=== PATIENT | female | born 1950 | race Caucasian/White ===

== ENCOUNTER 2016-04-22 18:01 | Inpatient (IN) | payer MEDICAID ==
[~2016-04-22] VITALS: Ht 154.9 cm; Wt 55.0 kg
[2016-04-22] MEDS ORDERED: SODIUM CHLORIDE 0.9% 500 ML IV ONE (18:15)
[2016-04-22] MEDS ORDERED: ATROPINE SULFATE 0.1 MG/ML 10 ML SYRINGE IVP ONE (18:15)
[2016-04-22] MEDS ORDERED: ONDANSETRON HCL 4 MG/2 ML VIAL IVP ONE (18:15)
[2016-04-22] MEDS ORDERED: CALCIUM GLUCONATE 100 MG/ML 10 ML IVP ONE (18:15)
[2016-04-22 18:16] LABS: BASOPHILS % (AUTO) 0.8 % (0.0-2.0); EOSINOPHILS % (AUTO) 4.1 % (1.0-6.0); HEMATOCRIT 24.8 % (36-46); LYMPHOCYTES # (AUTO) 2.3 K/uL (1.0-4.8); LYMPHOCYTES % (AUTO) 28.3 % (22.0-44.0); MEAN CORPUSCULAR HEMOGLOBIN 28.6 pg (26.0-34.0); MEAN CORPUSCULAR HGB CONC 32.2 G/dL (31.0-37.0); MEAN CORPUSCULAR VOLUME 89 fL (80-100); MONOCYTES # (AUTO) 0.7 K/uL (0.1-1.0); MONOCYTES % (AUTO) 8.5 % (2.0-9.0); NEUTROPHILS # (AUTO) 4.8 K/uL (1.8-7.7); NEUTROPHILS % (AUTO) 58.3 % (40.0-70.0); PLATELET COUNT (AUTO) 150 K/uL (150-450); RED BLOOD CELL COUNT(AUTO) 2.79 MIL/uL (4.00-5.20); RED CELL DISTRIBUTION WIDTH 14.6 % (11.5-14.5); WHITE BLOOD COUNT (AUTO) 8.2 K/uL (4.5-11.0)
[2016-04-22] MEDS ORDERED: IOVERSOL 350 MG/ML 100 ML VIAL ONE (18:27)
[2016-04-22 18:31] LABS: ALANINE AMINOTRANSFERASE 43 U/L (12-78); ANION GAP 13 mmol/L (8-16); ASPARTATE AMINOTRANSFERASE 53 U/L (15-37); BILIRUBIN,TOTAL 0.2 mg/dL (0.1-1.0); CALCIUM, TOTAL 7.6 mg/dL (8.8-10.5); CARBON DIOXIDE 18 mmol/L (22-29); CHLORIDE 108 mmol/L (98-107); CREATINE KINASE, TOTAL 41 U/L (26-192); GLOMERULAR FILTR. RATE CALC 12 mL/min (>60); SODIUM SERUM 139 mmol/L (136-145); TOTAL PROTEIN, SERUM 6.7 g/dL (6.4-8.2); UREA NITROGEN, BLOOD 83 mg/dL (7-18)
[2016-04-22 18:37] LABS: RBC MORPHOLOGY COMMENT NORMAL RBC MORPH
[2016-04-22 18:39] LABS: INR 1.1 (0.9-1.1)
[2016-04-22 18:49] LABS: POTASSIUM 6.6 mmol/L (3.5-5.1)
[2016-04-22] MEDS ORDERED: INSULIN REGULAR, HUMAN 100 UNITS/ML IVP ONE (19:00)
[2016-04-22] MEDS ORDERED: 0.9% SODIUM CHLORIDE 10 ML SYRINGE IVP PRN (19:00)
[2016-04-22] MEDS ORDERED: ACETAMINOPHEN 325 MG TABLET PO PRN (19:00)
[2016-04-22] MEDS ORDERED: ALBUTEROL SULFATE 5 MG/ML 20 ML NEB SOLN [BULK] NEB ONE (19:00)
[2016-04-22] MEDS ORDERED: SODIUM BICARBONATE [ADULT] 8.4% 50 MEQ/50 ML SYRINGE IVP ONE (19:00)
[2016-04-22] MEDS ORDERED: DEXTROSE 50%-WATER 25 GM/50 ML SYRINGE IVP ONE (19:00)
[2016-04-22] MEDS ORDERED: ONDANSETRON HCL 4 MG/2 ML VIAL IVP PRN (19:00)
[2016-04-22] MEDS ORDERED: SODIUM POLYSTYRENE SULFONATE 15 GM/60 ML SUSPENSION BOTTLE PO ONE (19:00)
[2016-04-22] MEDS: OXYGEN THERAPY IH SCH (19:21)
[2016-04-22] MEDS ORDERED: 0.9% SODIUM CHLORIDE 5 ML NEB SOLUTION NEB ONE ×2 (19:25)
[2016-04-22 19:31] LABS: APPEARANCE,URINE CLOUDY (CLEAR); GLUCOSE, URINE (UA) NEGATIVE (NEGATIVE); KETONES,URINE NEGATIVE (NEGATIVE); LEUKOCYTE ESTERASE ,URINE LARGE (NEGATIVE); OCCULT BLOOD,URINE MODERATE (NEGATIVE); PROTEIN,URINE SEE CONFIRM (NEGATIVE)
[2016-04-22 19:43] LABS: ADD UA MICROSCOPIC YES
[2016-04-22 20:04] LABS: SULFOSALICYLIC ACID,URINE 2+ (Negative)
[2016-04-22 20:06] LABS: SQUAMOUS EPITHELIAL CELL,UR Few /LPF (None Seen); WBC,URINE >100 /HPF (0-5)
[2016-04-22 20:59] LABS: LACTIC ACID 3.5 mmol/L (0.4-2.0); REFLEX LACTIC ACID? YES YES
[2016-04-22 20:59] LABS: CALCIUM, TOTAL 8.3 mg/dL (8.8-10.5); CREATININE 3.85 mg/dL (0.60-1.30); POTASSIUM 5.5 mmol/L (3.5-5.1)
[2016-04-23 00:27] VITALS: BP 160/75
[2016-04-23] MEDS ORDERED: DEXTROSE 50%-WATER 25 GM/50 ML SYRINGE IVP PRN (01:00)
[2016-04-23 03:56] VITALS: BP 154/70
[2016-04-23] MEDS ORDERED: INFLUENZA VIRUS VACCINE QVS 2016-17 (3YR+)/PF 60 MCG/0.5 ML SYRINGE IM ONE (04:00)
[2016-04-23] MEDS ORDERED: CefTRIAXone 1 GM/DEXTROSE 50 ML IV SCH (04:30)
[2016-04-23] MEDS ORDERED: MAGNESIUM HYDROXIDE SUSPENSION 30 ML UDCUP PO PRN (04:45)
[2016-04-23] MEDS ORDERED: ACETAMINOPHEN 325 MG TABLET PO PRN (04:45)
[2016-04-23] MEDS ORDERED: 0.9% SODIUM CHLORIDE 10 ML SYRINGE IVP PRN (04:45)
[2016-04-23] MEDS ORDERED: OxyCODONE HCL/ACETAMINOPHEN 5-325 MG TABLET PO PRN ×2 (04:45)
[2016-04-23] MEDS: CIPROFLOXACIN 400 MG/D5% WATER 200 ML IV SCH ×3 (05:48→18:52)
[2016-04-23] MEDS: INSULIN ASPART 100 UNITS/ML SQ PRN ×3 (05:52→21:42)
[2016-04-23] MEDS ORDERED: SODIUM CHLORIDE 0.9% 1,000 ML IV ONE (06:17)
[2016-04-23] MEDS: ONDANSETRON HCL 4 MG/2 ML VIAL IVP PRN (06:28)
[2016-04-23] MEDS: OXYGEN THERAPY IH SCH ×2 (08:00→19:37)
[2016-04-23 09:32] VITALS: BP 153/72
[2016-04-23] MEDS: PANTOPRAZOLE SODIUM 40 MG/VIAL IVP SCH (09:36)
[2016-04-23] MEDS: DOCUSATE SODIUM 100 MG CAPSULE PO SCH ×2 (09:36→21:33)
[2016-04-23] MEDS: BUMETANIDE 0.25 MG/ML 4 ML VIAL IVP SCH (09:37)
[2016-04-23 12:34] VITALS: BP 165/76
[2016-04-23] MEDS: SODIUM BICARBONATE 75 MEQ in SODIUM CHLORIDE 0.45% 1,000 ML IV SCH (15:20)
[2016-04-23 16:45] VITALS: BP 167/78
[2016-04-23] MEDS: SOD FERRIC GLUC COMPLX/SUCROSE 125 MG in SODIUM CHLORIDE 0.9% 100 ML IV SCH (17:37)
[2016-04-23] MEDS: HydrALAZINE HCL 50 MG TABLET PO SCH ×2 (17:37→21:33)
[2016-04-23 19:18] VITALS: BP 144/67
[2016-04-24] VITALS (7 sets, daily range): BP systolic 141–161; BP diastolic 62–72
[2016-04-24] MEDS: CIPROFLOXACIN 400 MG/D5% WATER 200 ML IV SCH ×2 (05:02→18:16)
[2016-04-24] MEDS: LEVOTHYROXINE SODIUM 25 MCG TABLET PO SCH (06:03)
[2016-04-24] MEDS: SODIUM BICARBONATE 75 MEQ in SODIUM CHLORIDE 0.45% 1,000 ML IV SCH (06:04)
[2016-04-24 06:43] LABS: BASOPHILS % (AUTO) 0.8 % (0.0-2.0); EOSINOPHILS % (AUTO) 3.3 % (1.0-6.0); HEMATOCRIT 22.8 % (36-46); HEMOGLOBIN 7.4 g/dL (12.0-16.0); LYMPHOCYTES # (AUTO) 1.2 K/uL (1.0-4.8); LYMPHOCYTES % (AUTO) 16.5 % (22.0-44.0); MEAN CORPUSCULAR HEMOGLOBIN 28.9 pg (26.0-34.0); MEAN CORPUSCULAR HGB CONC 32.5 G/dL (31.0-37.0); MEAN CORPUSCULAR VOLUME 89 fL (80-100); MONOCYTES # (AUTO) 0.6 K/uL (0.1-1.0); MONOCYTES % (AUTO) 8.1 % (2.0-9.0); NEUTROPHILS # (AUTO) 5.3 K/uL (1.8-7.7); NEUTROPHILS % (AUTO) 71.3 % (40.0-70.0); PLATELET COUNT (AUTO) 137 K/uL (150-450); RED BLOOD CELL COUNT(AUTO) 2.57 MIL/uL (4.00-5.20); RED CELL DISTRIBUTION WIDTH 14.1 % (11.5-14.5); WHITE BLOOD COUNT (AUTO) 7.4 K/uL (4.5-11.0)
[2016-04-24 06:52] LABS: CALCIUM, TOTAL 8.2 mg/dL (8.8-10.5); CREATININE 3.59 mg/dL (0.60-1.30)
[2016-04-24 07:17] LABS: RBC MORPHOLOGY COMMENT NORMAL RBC MORPH
[2016-04-24] MEDS: PANTOPRAZOLE SODIUM 40 MG/VIAL IVP SCH (08:50)
[2016-04-24] MEDS: BUMETANIDE 0.25 MG/ML 4 ML VIAL IVP SCH (08:50)
[2016-04-24] MEDS: OXYGEN THERAPY IH SCH ×2 (08:50→20:00)
[2016-04-24] MEDS: HydrALAZINE HCL 50 MG TABLET PO SCH ×3 (08:51→20:26)
[2016-04-24] MEDS: DOCUSATE SODIUM 100 MG CAPSULE PO SCH ×2 (08:51→20:26)
[2016-04-24] MEDS: INSULIN ASPART 100 UNITS/ML SQ PRN ×2 (11:51→18:25)
[2016-04-24] MEDS ORDERED: EPOETIN ALFA 10,000 UNITS/ML VIAL SQ ONE (13:00)
[2016-04-24] MEDS: SOD FERRIC GLUC COMPLX/SUCROSE 125 MG in SODIUM CHLORIDE 0.9% 100 ML IV SCH (16:23)
[2016-04-24] MEDS ORDERED: SODIUM CHLORIDE 0.9% 250 ML IV ONE (16:25)
[2016-04-25] VITALS (7 sets, daily range): BP systolic 135–156; BP diastolic 59–70
[2016-04-25] MEDS: ONDANSETRON HCL 4 MG/2 ML VIAL IVP PRN ×2 (00:26→08:00)
[2016-04-25] MEDS: CIPROFLOXACIN 400 MG/D5% WATER 200 ML IV SCH ×2 (04:44→17:10)
[2016-04-25] MEDS: INSULIN ASPART 100 UNITS/ML SQ PRN ×3 (06:00→20:37)
[2016-04-25] MEDS: LEVOTHYROXINE SODIUM 25 MCG TABLET PO SCH (06:00)
[2016-04-25 06:27] LABS: EOSINOPHILS % (AUTO) 1.2 % (1.0-6.0); HEMATOCRIT 23.2 % (36-46); HEMOGLOBIN 7.5 g/dL (12.0-16.0); LYMPHOCYTES # (AUTO) 1.3 K/uL (1.0-4.8); LYMPHOCYTES % (AUTO) 17.8 % (22.0-44.0); MEAN CORPUSCULAR HEMOGLOBIN 28.7 pg (26.0-34.0); MEAN CORPUSCULAR HGB CONC 32.1 G/dL (31.0-37.0); MEAN CORPUSCULAR VOLUME 89 fL (80-100); MONOCYTES # (AUTO) 0.6 K/uL (0.1-1.0); MONOCYTES % (AUTO) 8.6 % (2.0-9.0); NEUTROPHILS # (AUTO) 5.2 K/uL (1.8-7.7); NEUTROPHILS % (AUTO) 71.4 % (40.0-70.0); PLATELET COUNT (AUTO) 149 K/uL (150-450); RED CELL DISTRIBUTION WIDTH 13.9 % (11.5-14.5); WHITE BLOOD COUNT (AUTO) 7.3 K/uL (4.5-11.0)
[2016-04-25 07:02] LABS: CALCIUM, TOTAL 8.3 mg/dL (8.8-10.5); CREATININE 3.78 mg/dL (0.60-1.30); PHOSPHORUS 5.1 mg/dL (2.5-4.9); POTASSIUM 3.6 mmol/L (3.5-5.1)
[2016-04-25 07:47] LABS: RBC MORPHOLOGY COMMENT NORMAL RBC MORPH
[2016-04-25] MEDS: PANTOPRAZOLE SODIUM 40 MG/VIAL IVP SCH (07:57)
[2016-04-25] MEDS: OXYGEN THERAPY IH SCH ×2 (07:58→20:39)
[2016-04-25] MEDS: BUMETANIDE 0.25 MG/ML 4 ML VIAL IVP SCH (07:58)
[2016-04-25] MEDS: HydrALAZINE HCL 50 MG TABLET PO SCH ×3 (09:33→20:35)
[2016-04-25] MEDS: DOCUSATE SODIUM 100 MG CAPSULE PO SCH ×2 (09:33→20:35)
[2016-04-25 14:33] LABS: GLUCOSE COMMENT 1 Received Meds; GLUCOSE,POINT OF CARE 163 MG/DL (70-110)
[2016-04-25 15:32] LABS: GLUCOSE COMMENT 1 Received Meds; GLUCOSE,POINT OF CARE 187 MG/DL (70-110)
[2016-04-25] MEDS: SOD FERRIC GLUC COMPLX/SUCROSE 125 MG in SODIUM CHLORIDE 0.9% 100 ML IV SCH (15:42)
[2016-04-26 04:02] LABS: GLUCOSE,POINT OF CARE 136 MG/DL (70-110)
[2016-04-26 04:25] VITALS: BP 141/70
[2016-04-26 04:46] VITALS: BP 113/70
[2016-04-26] MEDS: LEVOTHYROXINE SODIUM 25 MCG TABLET PO SCH (06:15)
[2016-04-26] MEDS: CIPROFLOXACIN 400 MG/D5% WATER 200 ML IV SCH ×2 (06:15→17:00)
[2016-04-26 06:31] LABS: GLUCOSE,POINT OF CARE 136 MG/DL (70-110)
[2016-04-26 06:42] LABS: BASOPHILS % (AUTO) 0.7 % (0.0-2.0); EOSINOPHILS % (AUTO) 2.1 % (1.0-6.0); HEMATOCRIT 23.8 % (36-46); HEMOGLOBIN 7.6 g/dL (12.0-16.0); LYMPHOCYTES # (AUTO) 1.3 K/uL (1.0-4.8); LYMPHOCYTES % (AUTO) 14.1 % (22.0-44.0); MEAN CORPUSCULAR HEMOGLOBIN 28.7 pg (26.0-34.0); MEAN CORPUSCULAR HGB CONC 32.1 G/dL (31.0-37.0); MEAN CORPUSCULAR VOLUME 89 fL (80-100); MONOCYTES # (AUTO) 1.1 K/uL (0.1-1.0); MONOCYTES % (AUTO) 12.7 % (2.0-9.0); NEUTROPHILS # (AUTO) 6.3 K/uL (1.8-7.7); NEUTROPHILS % (AUTO) 70.4 % (40.0-70.0); PLATELET COUNT (AUTO) 158 K/uL (150-450); RED BLOOD CELL COUNT(AUTO) 2.67 MIL/uL (4.00-5.20); RED CELL DISTRIBUTION WIDTH 14.2 % (11.5-14.5)
[2016-04-26 07:08] LABS: CALCIUM, TOTAL 8.3 mg/dL (8.8-10.5); CREATININE 4.03 mg/dL (0.60-1.30); POTASSIUM 3.2 mmol/L (3.5-5.1)
[2016-04-26 07:11] LABS: RBC MORPHOLOGY COMMENT NORMAL RBC MORPH
[2016-04-26 07:28] VITALS: BP 148/65
[2016-04-26] MEDS: PANTOPRAZOLE SODIUM 40 MG/VIAL IVP SCH (07:51)
[2016-04-26] MEDS: HydrALAZINE HCL 50 MG TABLET PO SCH ×3 (07:52→20:47)
[2016-04-26] MEDS: DOCUSATE SODIUM 100 MG CAPSULE PO SCH ×2 (07:52→20:47)
[2016-04-26] MEDS: BUMETANIDE 0.25 MG/ML 4 ML VIAL IVP SCH (07:55)
[2016-04-26] MEDS: OXYGEN THERAPY IH SCH ×2 (07:55→20:50)
[2016-04-26] MEDS ORDERED: POTASSIUM CHLORIDE 20 MEQ ER TABLET PO ONE (08:00)
[2016-04-26] MEDS: ONDANSETRON HCL 4 MG/2 ML VIAL IVP PRN (08:11)
[2016-04-26 10:44] VITALS: BP 145/66
[2016-04-26] MEDS: INSULIN ASPART 100 UNITS/ML SQ PRN ×2 (11:42→20:49)
[2016-04-26 13:56] VITALS: BP 157/74
[2016-04-26] MEDS: SOD FERRIC GLUC COMPLX/SUCROSE 125 MG in SODIUM CHLORIDE 0.9% 100 ML IV SCH (16:00)
[2016-04-26 19:29] VITALS: BP 149/68
[2016-04-27] VITALS (7 sets, daily range): BP systolic 140–157; BP diastolic 63–88
[2016-04-27] MEDS: LEVOTHYROXINE SODIUM 25 MCG TABLET PO SCH (05:39)
[2016-04-27] MEDS: CIPROFLOXACIN 400 MG/D5% WATER 200 ML IV SCH (05:39)
[2016-04-27 06:22] LABS: GLUCOSE,POINT OF CARE 128 MG/DL (70-110)
[2016-04-27 06:22] LABS: GLUCOSE,POINT OF CARE 220 MG/DL (70-110)
[2016-04-27 06:22] LABS: GLUCOSE,POINT OF CARE 124 MG/DL (70-110)
[2016-04-27 07:41] LABS: CALCIUM, TOTAL 8.1 mg/dL (8.8-10.5); CREATININE 4.31 mg/dL (0.60-1.30); POTASSIUM 3.7 mmol/L (3.5-5.1)
[2016-04-27] MEDS: OXYGEN THERAPY IH SCH ×2 (08:00→20:41)
[2016-04-27] MEDS: HydrALAZINE HCL 50 MG TABLET PO SCH ×3 (08:16→20:40)
[2016-04-27] MEDS: PANTOPRAZOLE SODIUM 40 MG/VIAL IVP SCH (08:17)
[2016-04-27] MEDS: DOCUSATE SODIUM 100 MG CAPSULE PO SCH ×2 (08:17→20:40)
[2016-04-27] MEDS ORDERED: SODIUM CHLORIDE 0.9% 250 ML IV ONE (11:26)
[2016-04-27] MEDS: INSULIN ASPART 100 UNITS/ML SQ PRN ×3 (12:09→20:45)
[2016-04-27] MEDS: SOD FERRIC GLUC COMPLX/SUCROSE 125 MG in SODIUM CHLORIDE 0.9% 100 ML IV SCH (15:31)
[2016-04-28] MEDS: LEVOTHYROXINE SODIUM 25 MCG TABLET PO SCH (05:49)
[2016-04-28 05:55] VITALS: BP 162/71
[2016-04-28 07:25] VITALS: BP 176/81
[2016-04-28 08:23] LABS: HEMATOCRIT 23.6 % (36-46); HEMOGLOBIN 7.6 g/dL (12.0-16.0); MEAN CORPUSCULAR HEMOGLOBIN 28.8 pg (26.0-34.0); MEAN CORPUSCULAR HGB CONC 32.1 G/dL (31.0-37.0); MEAN CORPUSCULAR VOLUME 90 fL (80-100); PLATELET COUNT (AUTO) 167 K/uL (150-450); RED BLOOD CELL COUNT(AUTO) 2.63 MIL/uL (4.00-5.20); RED CELL DISTRIBUTION WIDTH 14.1 % (11.5-14.5); WHITE BLOOD COUNT (AUTO) 9.1 K/uL (4.5-11.0)
[2016-04-28 08:27] LABS: CALCIUM, TOTAL 7.6 mg/dL (8.8-10.5); CREATININE 3.94 mg/dL (0.60-1.30); POTASSIUM 3.9 mmol/L (3.5-5.1)
[2016-04-28] MEDS: DOCUSATE SODIUM 100 MG CAPSULE PO SCH ×2 (08:54→20:50)
[2016-04-28] MEDS: HydrALAZINE HCL 50 MG TABLET PO SCH ×3 (08:54→20:50)
[2016-04-28] MEDS: OXYGEN THERAPY IH SCH ×2 (08:54→20:00)
[2016-04-28] MEDS: PANTOPRAZOLE SODIUM 40 MG/VIAL IVP SCH (08:55)
[2016-04-28 09:35] LABS: LYMPHOCYTES % (MANUAL) 14 % (22-44); TOTAL CELLS COUNTED 100
[2016-04-28 12:01] VITALS: BP 162/74
[2016-04-28] MEDS: INSULIN ASPART 100 UNITS/ML SQ PRN ×2 (13:06→18:24)
[2016-04-28 14:58] VITALS: BP 158/73
[2016-04-28] MEDS: SOD FERRIC GLUC COMPLX/SUCROSE 125 MG in SODIUM CHLORIDE 0.9% 100 ML IV SCH (15:52)
[2016-04-28 19:14] LABS: ALPHA-1 URINE (ELP24) 4.4 %; ALPHA-2 URINE(ELP24) 8.1 %; BETA URINE(ELP24) 10.6 %; GAMMA URINE(ELP24) 18.9 %; TOTAL PROTEIN URINE 63.1 mg/dL (Not Estab.)
[2016-04-28 19:17] VITALS: BP 152/68
[2016-04-28 20:03] LABS: GLUCOSE,POINT OF CARE 148 MG/DL (70-110)
[2016-04-28 23:01] LABS: GLUCOSE,POINT OF CARE 166 MG/DL (70-110)
[2016-04-28 23:24] VITALS: BP 149/68
[2016-04-29 04:17] VITALS: BP 164/76
[2016-04-29] MEDS: LEVOTHYROXINE SODIUM 25 MCG TABLET PO SCH (05:52)
[2016-04-29 07:39] VITALS: BP 168/78
[2016-04-29] MEDS: PANTOPRAZOLE SODIUM 40 MG/VIAL IVP SCH (09:25)
[2016-04-29] MEDS: OXYGEN THERAPY IH SCH (09:25)
[2016-04-29] MEDS: DOCUSATE SODIUM 100 MG CAPSULE PO SCH (09:25)
[2016-04-29] MEDS: HydrALAZINE HCL 50 MG TABLET PO SCH ×2 (09:25→16:54)
[2016-04-29 11:22] VITALS: BP 160/74
[2016-04-29 12:06] LABS: BASOPHILS # (AUTO) 0.04 K/uL (0.00-0.20); BASOPHILS % (AUTO) 0.5 % (0.0-2.0); EOSINOPHILS # (AUTO) 0.24 K/uL (0.00-0.70); EOSINOPHILS % (AUTO) 2.67 % (1.0-6.0); HEMATOCRIT 23.7 % (36-46); LYMPHOCYTES # (AUTO) 1.2 K/uL (1.0-4.8); MEAN CORPUSCULAR HEMOGLOBIN 29.5 pg (26.0-34.0); MEAN CORPUSCULAR HGB CONC 33.6 G/dL (31.0-37.0); MEAN CORPUSCULAR VOLUME 88 fL (80-100); MONOCYTES # (AUTO) 0.8 K/uL (0.1-1.0); MONOCYTES % (AUTO) 9.2 % (2.0-9.0); NEUTROPHILS # (AUTO) 6.7 K/uL (1.8-7.7); NEUTROPHILS % (AUTO) 74.8 % (40.0-70.0); PLATELET COUNT (AUTO) 202 K/uL (150-450); RED CELL DISTRIBUTION WIDTH 14.5 % (11.5-14.5)
[2016-04-29 12:11] LABS: CALCIUM, TOTAL 7.5 mg/dL (8.8-10.5); CREATININE 3.9 mg/dL (0.60-1.30); POTASSIUM 3.7 mmol/L (3.5-5.1)
[2016-04-29] MEDS: INSULIN ASPART 100 UNITS/ML SQ PRN (12:36)
[2016-04-29] MEDS ORDERED: DSS100 PO (14:11)
[2016-04-29] MEDS ORDERED: LEVO25TA9 PO (14:15)
[2016-04-29] MEDS ORDERED: ASPI-1093 PO (14:16)
[2016-04-29] MEDS ORDERED: FOLI0.8T2 PO (14:16)
[2016-04-29 14:49] VITALS: BP 167/88
[2016-04-29] MEDS: SOD FERRIC GLUC COMPLX/SUCROSE 125 MG in SODIUM CHLORIDE 0.9% 100 ML IV SCH (16:00)
[2016-04-29 19:21] LABS: GLUCOSE,POINT OF CARE 126 MG/DL (70-110)
[2016-04-29 19:27] LABS: GLUCOSE,POINT OF CARE 209 MG/DL (70-110)
[2016-05-02 06:21] LABS: ALBUMIN (IFE & ELECTROPHOR) 3.2 g/dL (2.9-4.4); ALBUMIN/GLOBULIN RATIO (IFE) 1.2 (0.7-1.7); ALPHA-2 (IFE & PEP) 0.7 g/dL (0.4-1.0); IGG (IMMUNOFIXATION) 995 mg/dL (700-1600); M-SPIKE (IEP) Not Observed g/dL (Not Observed); TOTAL PROTEIN 5.9 g/dL (6.0-8.5)
[2016-05-02 14:07] LABS: GLUCOSE COMMENT 1 Received Meds; GLUCOSE,POINT OF CARE 165 MG/DL (70-110)
[2016-05-02 14:12] LABS: GLUCOSE COMMENT 1 Received Meds; GLUCOSE,POINT OF CARE 177 MG/DL (70-110)
[2016-05-02 14:12] LABS: GLUCOSE,POINT OF CARE 117 MG/DL (70-110)
[2016-05-02 14:12] LABS: GLUCOSE COMMENT 1 Received Meds; GLUCOSE,POINT OF CARE 144 MG/DL (70-110)
[2016-05-02 14:12] LABS: GLUCOSE COMMENT 1 Received Meds; GLUCOSE,POINT OF CARE 180 MG/DL (70-110)
[2016-05-02 14:12] LABS: GLUCOSE COMMENT 1 Received Meds; GLUCOSE,POINT OF CARE 168 MG/DL (70-110)
[2016-05-02 14:52] LABS: GLUCOSE,POINT OF CARE 175 MG/DL (70-110)
== END 2016-04-29 17:00 | disposition home or self-care (01) | DRG 775 ==
LOC: EMS 18:03 → 5N 23:30
PROVIDERS: ADMIT Internal Medicine; ATTEND Internal Medicine
DX: F10.129 Alcohol abuse with intoxication, unspecified (principal); E43 Unspecified severe protein-calorie malnutrition; K56.60 Unspecified intestinal obstruction; N17.9 Acute kidney failure, unspecified; E87.2 Acidosis; N18.4 Chronic kidney disease, stage 4 (severe); E11.22 Type 2 diabetes mellitus with diabetic chronic kidney disease; N39.0 Urinary tract infection, site not specified; D63.1 Anemia in chronic kidney disease; E03.9 Hypothyroidism, unspecified; E11.319 Type 2 diabetes mellitus with unspecified diabetic retinopathy without macular edema; E11.65 Type 2 diabetes mellitus with hyperglycemia; E78.00 Pure hypercholesterolemia, unspecified; I73.9 Peripheral vascular disease, unspecified; I12.9 Hypertensive chronic kidney disease with stage 1 through stage 4 chronic kidney disease, or unspecified chronic kidney disease; K52.9 Noninfective gastroenteritis and colitis, unspecified; E87.70 Fluid overload, unspecified; E87.5 Hyperkalemia; E78.5 Hyperlipidemia, unspecified; R00.1 Bradycardia, unspecified; Z88.1 Allergy status to other antibiotic agents; Z98.890 Other specified postprocedural states
CPT/HCPCS: 51702; 76770; 82570; 82575; 82784; 82962; 83540; 83550; 83605; 83883; 83935; 84100; 84133; 84155; 84156; 84165; 84166; 84300; 84443; 84540; 85007; 86334; 87086; 93005; 93306; 94640; 96374; 96375; 97161; 99291; C9113; J0610; J0696; J0744; J0885; J1815; J2405; J2916; J3490; J7030; J7040; J7050

== ENCOUNTER 2016-07-03 15:36 | Emergency (ER) | payer MEDICAID ==
[~2016-07-03] VITALS: Ht 160 cm; Wt 49.0 kg
[~2016-07-03 15:36] MED LIST: ASPI-1093 PO; DSS100 PO; FOLI0.8T2 PO; LEVO25TA9 PO
[2016-07-03 16:01] VITALS: BP 122/60
== END 2016-07-03 16:08 | disposition left against medical advice (07) ==
LOC: EMS 15:38
DX: Z00.00 Encounter for general adult medical examination without abnormal findings (principal); Z53.21 Procedure and treatment not carried out due to patient leaving prior to being seen by health care provider